=== PATIENT | female | born 1970 | race Caucasian/White ===

== ENCOUNTER → 2021-08-30 | Outpatient (CLI) | payer BC ==
[~2021-08-30] MED LIST: XYZAL5 MG PO
== END ==
LOC: EXRD 08:34
DX: M25.562 Pain in left knee (principal); M25.462 Effusion, left knee
CPT/HCPCS: 73564

== ENCOUNTER → 2021-10-17 | Outpatient (CLI) | payer BC | LOC: US 09:21 | DX: R10.11 Right upper quadrant pain (principal); K76.0 Fatty (change of) liver, not elsewhere classified | CPT/HCPCS: 76705 ==

== ENCOUNTER → 2022-01-10 | Outpatient (CLI) | payer BC | LOC: KOH-I 09:30 | DX: M25.562 Pain in left knee (principal); M22.42 Chondromalacia patellae, left knee | CPT/HCPCS: 73721 ==